=== PATIENT | female | born 1970 | race Caucasian/White ===

== ENCOUNTER 2022-01-03 06:54 | Inpatient (IN) | payer MEDICAID ==
[~2022-01-03] VITALS: Ht 170.2 cm; Wt 90.9 kg
[2022-01-03 07:57] LABS: BASOPHILS % (AUTO) 0.1 % (0-1); EOSINOPHILS % (AUTO) 0.3 % (0-6); HEMATOCRIT 38.9 % (35.0-45.0); HEMOGLOBIN 13.1 g/dl (12.0-16.0); LYMPHOCYTES # (AUTO) 1.5 X10'3 (1.1-4.8); LYMPHOCYTES % (AUTO) 10.4 % (21-51); MEAN CORPUSCULAR HEMOGLOBIN 29.1 PG (27.0-31.0); MEAN CORPUSCULAR HGB CONC 33.6 g/dL (33.0-36.5); MEAN CORPUSCULAR VOLUME 86.5 FL (78-98); MEAN PLATELET VOLUME 8.9 FL (7.4-10.4); MONOCYTES # (AUTO) 0.8 X10'3 (0-0.9); MONOCYTES % (AUTO) 5.6 % (2-12); NEUTROPHILS # (AUTO) 12.4 X10'3 (1.8-7.7); NEUTROPHILS % (AUTO) 83.6 % (42-75); PLATELET COUNT 253 X10'3 (140-440); RED BLOOD COUNT 4.49 X10'6 (4.20-5.60); RED CELL DISTRIBUTION WIDTH 14.4 % (11.5-14.5); WHITE BLOOD COUNT 14.8 X10'3 (4.5-11.0)
[2022-01-03 08:06] LABS: ALANINE AMINOTRANSFERASE 24 U/L (12-78); ALBUMIN 3.4 G/DL (3.4-5.0); ALBUMIN/GLOBULIN RATIO 0.7 (1.1-1.5); ALKALINE PHOSPHATASE 82 IU/L (46-116); ANION GAP 8 (8-16); ASPARTATE AMINO TRANSFERASE 25 U/L (10-37); BILIRUBIN,TOTAL 0.3 MG/DL (0.1-1.0); BLOOD UREA NITROGEN 9 MG/DL (7-18); BUN/CREATININE RATIO 12.9 (6.6-38.0); CALCIUM 8.8 MG/DL (8.5-10.1); CHLORIDE 105 MMOL/L (99-107); GLUCOSE 99 MG/DL (70-104); POTASSIUM 3.7 MMOL/L (3.5-5.1); SODIUM 138 MMOL/L (135-145); TOTAL CARBON DIOXIDE 24.9 MMOL/L (24-32); TOTAL PROTEIN 8.2 G/DL (6.4-8.2); eGFR 89 ML/MIN
[2022-01-03] MEDS ORDERED: heparin, porcine 5000 units/ml vial IJ SCH (08:40)
--- NOTE | 2022-01-03 09:20 | NUR ---
called the pharmacy to fix the order for heparin bolus.
[2022-01-03] MEDS ORDERED: heparin 10,000 units/1 ML INJ IV ONE ×2 (09:21→17:50)
[2022-01-03 09:44] LABS: D-DIMER 15.99 MG/L FEU (0-0.50)
--- NOTE | 2022-01-03 09:46 | NUR ---
trop 383 ER aware
[2022-01-03] MEDS ORDERED: fentaNYL/PF 50MCG/1 ML 2ML syringe IV ONE (09:55)
--- NOTE | 2022-01-03 10:00 | NUR ---
yesenia from cardiology notified that pt has received heparin 4000 unit if heparin transfusion is recommeneded as per yesenia she will talk to dr eddy.
[2022-01-03] MEDS ORDERED: acetaminophen 325mg tablet PO PRN (11:45)
[2022-01-03] MEDS ORDERED: magnesium Cl slow-release 64mg tablet PO PRN (11:45)
[2022-01-03] MEDS ORDERED: POTASSIUM BICARB 20meq eff tab 20 MEQ TABLET.EFF PO PRN ×2 (11:45)
[2022-01-03] MEDS ORDERED: PERFLUTREN PROTEIN-A MICROSPHR (Optison) 0.22 MG/ML 3ML VIAL IV ONE (11:45)
[2022-01-03] MEDS ORDERED: magnesium 2GM in 50ml NS 50 ML IV PRN (11:45)
[2022-01-03] MEDS ORDERED: morphine 2 MG/ML inj. syringe IV PRN (11:45)
[2022-01-03] MEDS ORDERED: HYDROcodone/acetaminophen 5mg/325mg tablet PO PRN (11:45)
[2022-01-03] MEDS ORDERED: ondansetron/PF 4mg/2ml inj IV PRN (11:45)
[2022-01-03] MEDS ORDERED: potassium CL 10mEq/100ml bag 100 ML IV PRN (11:45)
[2022-01-03] MEDS ORDERED: magnesium 4gm in 100ml NS 100 ML IV PRN (11:45)
[2022-01-03 12:06] LABS: MAGNESIUM 1.8 MG/DL (1.5-2.4)
[2022-01-03] MEDS ORDERED: NO HOME MEDS (12:50)
[2022-01-03] MEDS ORDERED: metoprolol tartrate 1mg/ml inj IV PRN (15:20)
[2022-01-03] MEDS ORDERED: nitroGLYCERIN 0.4mg SUBLingual tab SL PRN (15:20)
[2022-01-03] MEDS ORDERED: regadenoson 0.4mg/5ml syringe IV PRN (15:20)
[2022-01-03] MEDS ORDERED: aminophylline 500mg/20ml vial IV PRN (15:20)
--- NOTE | 2022-01-03 17:03 | NUR ---
dr eddy at bedside.
--- NOTE | 2022-01-03 17:33 | NUR ---
multiple attempt made to get iv aceess,i tried 3 attempt unsuccesful ,ashlee rn tried,elliot discharge coordinator trying at this time ,made yesenia aware that cta is getting delay due to no iv acess.pt has iv to lft foot its [address] scan can't use for cta.
--- NOTE | 2022-01-03 17:36 | NUR ---
charge nurse lizabeth at bedside ,trying to get iv access.
[2022-01-03] MEDS ORDERED: iohexol 350MG/ML 100ml bottle IV ONE (17:41)
[2022-01-03] MEDS ORDERED: heparin 10,000 units/1 ML INJ IV PRN (17:50)
[2022-01-03] MEDS: heparin 25,000 UNIT/250ml bag 250 ML IV SCH (18:26)
[2022-01-03] MEDS ORDERED: heparin, porcine 5000 units/ml vial SQ SCH (20:00)
[2022-01-03] MEDS: K and/or MAG REPLACEMENT MC SCH (20:00)
[2022-01-03] MEDS ORDERED: temazepam 15mg capsule PO PRN (21:00)
[2022-01-04] MEDS ORDERED: acetaminophen 325mg tablet PO ONE (00:05)
--- NOTE | 2022-01-04 00:57 | NUR ---
Dr. Starr notified. Pt Troponin 244
--- NOTE | 2022-01-04 01:08 | NUR ---
Report given to Celeste GARCIA.
[2022-01-04 02:00] VITALS: BP 90/55
--- NOTE | 2022-01-04 05:05 | NUR ---
Patient arrived to floor on [address], SBA to bed. Patient alert and oriented x4, denies any pain. Patient stated she lived with her significant other, Frederick Anne [phone], and he is her contact. 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 States her chest pain has improved from when she came in, shortness of breath at rest and with exertion, denies cough, LBM 07/20, also noted some non pitting edema to her lower legs. Patient oriented to room, call light on bed in reach of patient. Patient call appropriately, up to bathroom to void, SBA. Denies any issues or concerns.
[2022-01-04 06:00] VITALS: BP 90/53
[2022-01-04] MEDS: K and/or MAG REPLACEMENT MC SCH ×2 (08:00→20:00)
[2022-01-04] MEDS: heparin 25,000 UNIT/250ml bag 250 ML IV SCH (08:33)
[2022-01-04 08:45] LABS: BASOPHILS % (AUTO) 0.4 % (0-1); EOSINOPHILS # (AUTO) 0.1 X10'3 (0-0.9); EOSINOPHILS % (AUTO) 1.2 % (0-6); HEMATOCRIT 33.7 % (35.0-45.0); HEMOGLOBIN 11.4 g/dl (12.0-16.0); LYMPHOCYTES # (AUTO) 2.7 X10'3 (1.1-4.8); LYMPHOCYTES % (AUTO) 31.7 % (21-51); MEAN CORPUSCULAR HEMOGLOBIN 29.5 PG (27.0-31.0); MEAN CORPUSCULAR HGB CONC 33.8 g/dL (33.0-36.5); MEAN CORPUSCULAR VOLUME 87.5 FL (78-98); MEAN PLATELET VOLUME 8.8 FL (7.4-10.4); MONOCYTES # (AUTO) 0.8 X10'3 (0-0.9); MONOCYTES % (AUTO) 9.5 % (2-12); NEUTROPHILS # (AUTO) 4.8 X10'3 (1.8-7.7); NEUTROPHILS % (AUTO) 57.2 % (42-75); PLATELET COUNT 191 X10'3 (140-440); RED BLOOD COUNT 3.85 X10'6 (4.20-5.60); RED CELL DISTRIBUTION WIDTH 14.2 % (11.5-14.5); WHITE BLOOD COUNT 8.4 X10'3 (4.5-11.0)
[2022-01-04 08:47] LABS: ALBUMIN 2.6 G/DL (3.4-5.0); ANION GAP 9 (8-16); BLOOD UREA NITROGEN 7 MG/DL (7-18); BUN/CREATININE RATIO 12.3 (6.6-38.0); CALCIUM 8.3 MG/DL (8.5-10.1); CHLORIDE 103 MMOL/L (99-107); CHOL/HDL RATIO 2.4 (0.00-4.99); CHOLESTEROL 134 MG/DL (0-200); CREATININE 0.57 MG/DL (0.40-0.90); GLUCOSE 103 MG/DL (70-104); HDL CHOLESTEROL 57 MG/DL (35-60); LDL CHOLESTEROL 62 MG/DL (50-100); MAGNESIUM 1.8 MG/DL (1.5-2.4); POTASSIUM 3.5 MMOL/L (3.5-5.1); SODIUM 138 MMOL/L (135-145); TOTAL CARBON DIOXIDE 26.3 MMOL/L (24-32); TRIGLYCERIDES 47 MG/DL (20-135); eGFR > 90 ML/MIN
--- NOTE | 2022-01-04 09:44 | NUR ---
Spoke with pt's oldest son Reji, . He is the main contact lens technician for the family. All questions answered regarding health status and current plan of care. Son also states that pt has Lyme Disease. I will communicate this to .
[2022-01-04 11:00] VITALS: BP 91/55
--- NOTE | 2022-01-04 11:33 | NUR ---
Met with patient in regards to substance use and to see if patient is interested in resources for treatment options. Patient declined.
[2022-01-04 15:00] VITALS: BP 99/58
[2022-01-04 18:00] VITALS: BP 92/53
[2022-01-04 22:00] VITALS: BP 102/59
[2022-01-05] MEDS: heparin 25,000 UNIT/250ml bag 250 ML IV SCH ×2 (01:54→13:59)
[2022-01-05 02:00] VITALS: BP 95/59
[2022-01-05 03:42] LABS: CLARITY,URINE CLEAR (Clear); COLOR,URINE YELLOW (Yellow); GLUCOSE, URINE NEGATIVE (Neg); KETONES,URINE NEGATIVE (Neg); LEUKOCYTE ESTERASE ,URINE NEGATIVE (Neg); NITRITES, URINE NEGATIVE (Neg); OCCULT BLOOD,URINE NEGATIVE (Neg); PH,URINE 6.5 (4.8-8.0); PROTEIN,URINE NEGATIVE (Neg); UROBILINOGEN,URINE 0.2 E.U/dL (0.2-1.0)
[2022-01-05 03:48] LABS: UA COLLECTION TYPE CLN CATCH MIDSTREAM
[2022-01-05 06:00] VITALS: BP 105/60
--- NOTE | 2022-01-05 06:10 | NUR ---
Patient in room PCU 3012. I have received report from Sharad RN & Doreen RN and had the opportunity to ask questions and assume patient care.
[2022-01-05 06:26] LABS: ALBUMIN 2.8 G/DL (3.4-5.0); ANION GAP 8 (8-16); BLOOD UREA NITROGEN 10 MG/DL (7-18); BUN/CREATININE RATIO 15.9 (6.6-38.0); CHLORIDE 103 MMOL/L (99-107); CREATININE 0.63 MG/DL (0.40-0.90); GLUCOSE 89 MG/DL (70-104); MAGNESIUM 1.8 MG/DL (1.5-2.4); SODIUM 136 MMOL/L (135-145); TOTAL CARBON DIOXIDE 25.3 MMOL/L (24-32); eGFR > 90 ML/MIN
[2022-01-05 06:27] LABS: BASOPHILS % (AUTO) 0.4 % (0-1); EOSINOPHILS # (AUTO) 0.1 X10'3 (0-0.9); EOSINOPHILS % (AUTO) 1.2 % (0-6); HEMATOCRIT 36.8 % (35.0-45.0); HEMOGLOBIN 12.6 g/dl (12.0-16.0); LYMPHOCYTES # (AUTO) 2.3 X10'3 (1.1-4.8); LYMPHOCYTES % (AUTO) 31.8 % (21-51); MEAN CORPUSCULAR HGB CONC 34.1 g/dL (33.0-36.5); MEAN PLATELET VOLUME 8.8 FL (7.4-10.4); MONOCYTES # (AUTO) 0.5 X10'3 (0-0.9); MONOCYTES % (AUTO) 6.8 % (2-12); NEUTROPHILS # (AUTO) 4.4 X10'3 (1.8-7.7); NEUTROPHILS % (AUTO) 59.8 % (42-75); PLATELET COUNT 200 X10'3 (140-440); RED BLOOD COUNT 4.19 X10'6 (4.20-5.60); WHITE BLOOD COUNT 7.4 X10'3 (4.5-11.0)
[2022-01-05] MEDS: K and/or MAG REPLACEMENT MC SCH ×2 (08:00→20:00)
[2022-01-05 10:00] VITALS: BP 109/66
[2022-01-05] MEDS ORDERED: acetaminophen 325mg tablet PO PRN (15:25)
[2022-01-05 18:00] VITALS: BP 106/65
--- NOTE | 2022-01-05 18:10 | NUR ---
Problems reprioritized. Patient report given, questions answered & plan of care reviewed with JOSE Logan.
[2022-01-05] MEDS: apixaban 5mg tablet PO SCH (21:00)
[2022-01-05 22:00] VITALS: BP 106/71
[2022-01-06 02:00] VITALS: BP 104/65
[2022-01-06 06:00] VITALS: BP 104/66
--- NOTE | 2022-01-06 06:11 | NUR ---
Problems reprioritized. Patient report given, questions answered & plan of care reviewed with Laila GARCIA. Addendum: 01/06/22 at 0612 by Doreen Glez RN Amended: Links added.
--- NOTE | 2022-01-06 06:15 | NUR ---
Patient in room PCU 3012. I have received report from JOSE Logan and had the opportunity to ask questions and assume patient care.
[2022-01-06] MEDS: K and/or MAG REPLACEMENT MC SCH (08:00)
[2022-01-06 08:24] LABS: BASOPHILS % (AUTO) 0.3 % (0-1); EOSINOPHILS # (AUTO) 0.1 X10'3 (0-0.9); EOSINOPHILS % (AUTO) 1.2 % (0-6); HEMATOCRIT 39.8 % (35.0-45.0); HEMOGLOBIN 13.5 g/dl (12.0-16.0); LYMPHOCYTES # (AUTO) 1.6 X10'3 (1.1-4.8); LYMPHOCYTES % (AUTO) 18.9 % (21-51); MEAN CORPUSCULAR HEMOGLOBIN 29.4 PG (27.0-31.0); MEAN CORPUSCULAR VOLUME 86.4 FL (78-98); MEAN PLATELET VOLUME 8.8 FL (7.4-10.4); MONOCYTES # (AUTO) 0.5 X10'3 (0-0.9); MONOCYTES % (AUTO) 5.8 % (2-12); NEUTROPHILS # (AUTO) 6.1 X10'3 (1.8-7.7); NEUTROPHILS % (AUTO) 73.8 % (42-75); PLATELET COUNT 263 X10'3 (140-440); RED BLOOD COUNT 4.61 X10'6 (4.20-5.60); RED CELL DISTRIBUTION WIDTH 13.9 % (11.5-14.5); WHITE BLOOD COUNT 8.2 X10'3 (4.5-11.0)
[2022-01-06 08:39] LABS: ALBUMIN 3.2 G/DL (3.4-5.0); ANION GAP 10 (8-16); BLOOD UREA NITROGEN 13 MG/DL (7-18); BUN/CREATININE RATIO 21.7 (6.6-38.0); CALCIUM 9.3 MG/DL (8.5-10.1); CHLORIDE 101 MMOL/L (99-107); GLUCOSE 93 MG/DL (70-104); MAGNESIUM 1.9 MG/DL (1.5-2.4); POTASSIUM 4.1 MMOL/L (3.5-5.1); SODIUM 135 MMOL/L (135-145); eGFR > 90 ML/MIN
[2022-01-06 10:00] VITALS: BP 116/75
[2022-01-06] MEDS: apixaban 5mg tablet PO SCH (10:53)
[2022-01-06 14:00] VITALS: BP 115/74
[2022-01-06] MEDS ORDERED: APIX5TAB3 PO (17:15)
--- NOTE | 2022-01-06 18:00 | NUR ---
DC inst provided to pt. IV DC'd, tip intact. All belongings sent w/pt. WC to vehicle.
[2022-01-12] MEDS ORDERED: apixaban 5mg tablet PO SCH (20:00)
== END 2022-01-06 17:55 | disposition home or self-care (01) | DRG 720 ==
LOC: ER 06:55 → ED HOLD 11:45 → PCU 3S 01-04 01:20 → UNDODISIN 01-06 16:44
PROVIDERS: ADMIT Internal Medicine; ATTEND Internal Medicine
PROC: B32T1ZZ Computerized Tomography (CT Scan) of Left Pulmonary Artery using Low Osmolar Contrast (ICD-10-PCS; principal; 2022-01-03)
PROC: B3201ZZ Computerized Tomography (CT Scan) of Thoracic Aorta using Low Osmolar Contrast (ICD-10-PCS; 2022-01-03)
PROC: B32S1ZZ Computerized Tomography (CT Scan) of Right Pulmonary Artery using Low Osmolar Contrast (ICD-10-PCS; 2022-01-03)
DX: A41.9 Sepsis, unspecified organism (principal); I26.99 Other pulmonary embolism without acute cor pulmonale; I21.4 Non-ST elevation (NSTEMI) myocardial infarction; I51.4 Myocarditis, unspecified; I95.9 Hypotension, unspecified; R55 Syncope and collapse; F32.A Depression, unspecified; F15.90 Other stimulant use, unspecified, uncomplicated; Z82.49 Family history of ischemic heart disease and other diseases of the circulatory system; Z87.891 Personal history of nicotine dependence; Z90.710 Acquired absence of both cervix and uterus; Z88.8 Allergy status to other drugs, medicaments and biological substances
CPT/HCPCS: 36415; 71045; 71275; 80048; 80053; 80061; 81003; 83735; 83880; 84484; 85025; 85379; 85730; 87081; 93005; 93306; 99285; A4615; G0378; J1644; J3010; J3490; J7030; Q9967

== ENCOUNTER 2022-01-20 02:14 | Emergency (ER) | payer MEDICAID ==
[~2022-01-20] VITALS: Ht 170.2 cm; Wt 90.9 kg
[~2022-01-20 02:14] MED LIST: APIX5TAB3 PO
[2022-01-20 02:23] VITALS: BP 115/83
== END 2022-01-20 06:57 | disposition left against medical advice (07) ==
LOC: ER 02:15
DX: R60.9 Edema, unspecified (principal); Z88.6 Allergy status to analgesic agent; Z79.899 Other long term (current) drug therapy; Z90.49 Acquired absence of other specified parts of digestive tract
CPT/HCPCS: 99281

== ENCOUNTER 2022-02-10 20:04 | Emergency (ER) | payer MEDICAID ==
[~2022-02-10] VITALS: Ht 170.2 cm; Wt 90.5 kg
[2022-02-10] MEDS ORDERED: diphenhydrAMINE 50 mg/ml inj IV ONE (23:10)
[2022-02-10] MEDS ORDERED: normal saline 1000ML IV soln IVB ONE (23:10)
[2022-02-10] MEDS ORDERED: proCHLORperazine 10 MG/2 ml inj IV ONE (23:10)
[2022-02-11 01:12] VITALS: BP 108/64
[2022-02-11] MEDS ORDERED: albuterol 2.5 MG/3 ML nebule NEB ONE (01:25)
== END 2022-02-11 01:14 | disposition home or self-care (01) ==
LOC: ER 20:05
DX: G44.209 Tension-type headache, unspecified, not intractable (principal); G43.909 Migraine, unspecified, not intractable, without status migrainosus; Z90.49 Acquired absence of other specified parts of digestive tract; F12.10 Cannabis abuse, uncomplicated; Z79.82 Long term (current) use of aspirin; Z79.899 Other long term (current) drug therapy; Z88.6 Allergy status to analgesic agent
CPT/HCPCS: 96361; 96374; 96375; 99284; J0780; J1200; J7030

== ENCOUNTER 2023-06-04 01:09 | Emergency (ER) | payer MEDICAID ==
[~2023-06-04] VITALS: Ht 168.9 cm; Wt 88.2 kg
[2023-06-04 01:25] VITALS: BP 110/69; PULSE 98; RESP 16; TEMP 98.8; O2SAT 98
== END 2023-06-04 02:05 | disposition home or self-care (01) ==
LOC: ER 01:10
DX: R22.32 Localized swelling, mass and lump, left upper limb (principal); M25.512 Pain in left shoulder; Z79.01 Long term (current) use of anticoagulants; G43.909 Migraine, unspecified, not intractable, without status migrainosus; Z98.890 Other specified postprocedural states; Z90.710 Acquired absence of both cervix and uterus; Z88.5 Allergy status to narcotic agent; Z79.899 Other long term (current) drug therapy
CPT/HCPCS: 99281

== ENCOUNTER 2023-09-07 19:26 | Emergency (ER) | payer MEDICAID ==
[~2023-09-07] VITALS: Ht 167.6 cm; Wt 88.0 kg
[2023-09-07] MEDS ORDERED: NAPR-56 PO (21:53)
[2023-09-07] MEDS: ketorolac tromethamine 15mg/ml inj. IM ONE (22:12)
[2023-09-07 22:16] VITALS: BP 117/76; PULSE 87; RESP 16; TEMP 99.2; O2SAT 100
== END 2023-09-07 22:18 | disposition home or self-care (01) ==
LOC: ER 19:28
DX: S83.8X2A Sprain of other specified parts of left knee, initial encounter (principal); Y93.39 Activity, other involving climbing, rappelling and jumping off; Y93.89 Activity, other specified; Y92.89 Other specified places as the place of occurrence of the external cause; Y99.8 Other external cause status; Z90.710 Acquired absence of both cervix and uterus; F12.90 Cannabis use, unspecified, uncomplicated; Z88.8 Allergy status to other drugs, medicaments and biological substances; Z79.899 Other long term (current) drug therapy
CPT/HCPCS: 29505; 73564; 96372; 99283; J1885

== ENCOUNTER 2023-12-08 19:11 | Emergency (ER) | payer MEDICAID ==
[~2023-12-08] VITALS: Ht 167.6 cm; Wt 84.5 kg
[2023-12-08 19:16] VITALS: BP 140/86; PULSE 89; RESP 18; TEMP 98.4; O2SAT 95
[2023-12-08] MEDS ORDERED: DIPH25TA62 PO (20:15)
[2023-12-08] MEDS: dexamethasone sod phosphate 10mg/ml inj IM STA (20:25)
== END 2023-12-08 20:30 | disposition home or self-care (01) ==
LOC: ER 19:12
DX: L23.89 Allergic contact dermatitis due to other agents (principal); F12.90 Cannabis use, unspecified, uncomplicated; G43.909 Migraine, unspecified, not intractable, without status migrainosus; Z88.8 Allergy status to other drugs, medicaments and biological substances; Z79.899 Other long term (current) drug therapy; Z86.711 Personal history of pulmonary embolism; Z90.710 Acquired absence of both cervix and uterus; Z98.890 Other specified postprocedural states
CPT/HCPCS: 96372; 99283; J1100

== ENCOUNTER 2023-12-15 23:30 | Emergency (ER) | payer MEDICAID ==
[~2023-12-15] VITALS: Ht 167.6 cm; Wt 86.8 kg
[~2023-12-15 23:30] MED LIST changes: +DIPH25TA62 PO
[2023-12-16] MEDS ORDERED: PRED20TA PO (00:40)
[2023-12-16] MEDS: dexamethasone 4mg tablet PO ONE (00:49)
[2023-12-16 01:00] VITALS: BP 130/100; PULSE 96; RESP 18; TEMP 98.2; O2SAT 96
== END 2023-12-16 01:01 | disposition home or self-care (01) ==
LOC: ER 23:30
DX: L23.9 Allergic contact dermatitis, unspecified cause (principal); G43.909 Migraine, unspecified, not intractable, without status migrainosus; F12.90 Cannabis use, unspecified, uncomplicated; Z88.6 Allergy status to analgesic agent; Z79.899 Other long term (current) drug therapy; Z90.710 Acquired absence of both cervix and uterus
CPT/HCPCS: 99283

== ENCOUNTER 2024-08-16 02:13 | Emergency (ER) | payer MEDICAID ==
[~2024-08-16] VITALS: Ht 167.6 cm; Wt 90.8 kg
[2024-08-16] MEDS: proparacaine 0.5% ophthalmic drops 15ml EACHEYE ONE (03:32)
[2024-08-16] MEDS ORDERED: PRED5DRO23 LEFTEYE (03:56)
[2024-08-16 04:47] VITALS: BP 136/80; PULSE 92; RESP 18; TEMP 99; O2SAT 98
== END 2024-08-16 04:48 | disposition home or self-care (01) ==
LOC: ER 02:14
DX: H10.32 Unspecified acute conjunctivitis, left eye (principal); G43.909 Migraine, unspecified, not intractable, without status migrainosus; F12.90 Cannabis use, unspecified, uncomplicated; Z88.6 Allergy status to analgesic agent; Z98.890 Other specified postprocedural states; Z90.710 Acquired absence of both cervix and uterus
CPT/HCPCS: 99283

== ENCOUNTER 2024-09-15 11:50 | Emergency (ER) | payer MEDICAID ==
[~2024-09-15] VITALS: Ht 167.6 cm; Wt 89.2 kg
[~2024-09-15 11:50] MED LIST changes: +PRED5DRO23 LEFTEYE
[2024-09-15 11:58] VITALS: BP 156/69; PULSE 92; RESP 18; O2SAT 99
[2024-09-15] MEDS: proparacaine 0.5% ophthalmic drops 15ml LEFTEYE ONE (13:20)
[2024-09-15] MEDS ORDERED: CIPR2.5D21 LEFTEYE (13:42)
[2024-09-15 13:47] VITALS: TEMP 97.9
== END 2024-09-15 13:48 | disposition home or self-care (01) ==
LOC: ER 11:51
DX: H57.12 Ocular pain, left eye (principal); G43.909 Migraine, unspecified, not intractable, without status migrainosus; F12.90 Cannabis use, unspecified, uncomplicated; Z88.6 Allergy status to analgesic agent; Z90.710 Acquired absence of both cervix and uterus
CPT/HCPCS: 99283